=== PATIENT | female | born 1975 | race Caucasian/White ===

== ENCOUNTER 2021-09-21 16:59 | Inpatient (IN) | payer SELFPAY ==
[2021-09-21 17:29] VITALS: BP 135/87; PULSE 97; RESP 22; TEMP 36.6; O2SAT 97; BMI 26.4
--- NOTE | 2021-09-21 18:10 | ED.C_ITS ---
HPI - Psych General: Chief Complaint: Psychiatric Symptoms Stated Complaint: SI Time Seen by Provider: 09/21/21 17:38 Source: patient Mode of arrival: ambulatory Limitations: no limitations History of Present Illness: 46-year-old female who is here with suicidal ideations. She is here with her [id number] she had found out today that her had been cheating on her and had a mental breakdown. She said that she had a 9 mm gun was going to get it and shoot herself in the head. She is been drinking heavily as well. His she is very tearful and states she does want to kill herself. Associated symptoms: Reports depression and suicidal ideation Review of Systems Const: Denies: fever(s), chills, body aches or change in appetite Eyes: Denies: blurry vision or eye discomfort ENMT: Denies: throat pain or dental pain Card: Denies: chest pain Resp: Denies: dyspnea GI: Denies: abdominal pain, nausea, vomiting or diarrhea : Denies: dysuria Musc: Denies: neck pain or back pain Skin/Breast: Denies: rash Neuro: Denies: headache(s) Psych: Reports: depression and suicidal ideation Kerwin/Lymph: Denies: easy bruising All/Imm: Denies: urticaria Physical Exam Const: COMMON NORMALS: no acute distress, patient oriented x3 and healthy appearing HENMT: COMMON NORMALS: normocephalic and atraumatic HEAD & SCALP: normocephalic and atraumatic Eye: COMMON NORMALS: Equal, round and reactive pupils present and EOMs intact bilaterally PUPIL: Yes Equal, round and reactive pupils present Neck/C-Spine: COMMON NORMALS: full ROM and supple Chest: COMMONS NORMALS: normal inspection of the chest and normal palpation of entire chest wall Resp: COMMON NORMALS: normal respiratory effort, No retractions, No use of accessory muscles and clear to auscultation bilaterally AUSCULTATION: clear to auscultation bilaterally Cardio: COMMON NORMALS: regular rate, regular rhythm and No murmurs present (Cardio) RATE: regular rate RHYTHM: regular rhythm GI: COMMON NORMALS: Normal to inspection, nondistended, normoactive bowel sounds present, Soft to palpation, non-tender and no masses PALPATION: Yes Soft to palpation Extremity: COMMON NORMALS: normal to inspection and full ROM Neuro: COMMON NORMALS: patient oriented x3, moves all extremities and no focal motor deficits Psych: COMMON NORMALS: mental status grossly normal, Normal thought process present and cooperative THOUGHT PROCESS: Normal thought process present THOUGHT CONTENT: Yes Suicidality present Skin: COMMON NORMALS: no rashes or lesions noted and no wounds GENERAL SKIN EXAM: no rashes or lesions noted Course Vital Signs: Vital signs: Vital Signs Temperature 97.8 F 09/21/21 17:29 Pulse Rate 97 09/21/21 17:29 Respiratory Rate 22 H 09/21/21 17:29 Blood Pressure 135/87 09/21/21 17:29 Pulse Oximetry 97 09/21/21 17:29 MDM - Psych Medical Decision Making Patient presents here with suicidal ideation with a plan to shoot herself in the head. Patient is medically cleared placed in a 6-hour hold I spoke to aline guerin and will admit. Lab Data : 09/21/21 18:00 09/21/21 18:00 Laboratory Results WBC 14.2 10^3/uL (4.0-10.0) H 09/21/21 18:00 RBC 4.44 10^6/uL (4.1-5.3) 09/21/21 18:00 Hgb 14.1 g/dL (11.5-15.3) 09/21/21 18:00 Hct 42.6 % (37.0-47.0) 09/21/21 18:00 MCV 95.9 fl (81-99) 09/21/21 18:00 MCH 31.8 pg (28.0-34.0) 09/21/21 18:00 MCHC 33.1 g/dL (30.0-36.0) 09/21/21 18:00 RDW 12.5 % (12.1-15.1) 09/21/21 18:00 Plt Count 513 10^3/cmm (130-400) H 09/21/21 18:00 MPV 8.7 fL (7.4-10.4) 09/21/21 18:00 Neut % (Auto) 68.9 % 09/21/21 18:00 Lymph % (Auto) 23.7 % 09/21/21 18:00 [place] % (Auto) 5.8 % 09/21/21 18:00 Eos % (Auto) 0.5 % 09/21/21 18:00 Baso % (Auto) 0.7 % 09/21/21 18:00 Neut # (Auto) 9.82 10^3/uL (1.8-7.7) H 09/21/21 18:00 Lymph # (Auto) 3.4 10^3/uL (0.8-4.8) 09/21/21 18:00 [place] # (Auto) 0.8 10^3/uL (0.2-0.9) 09/21/21 18:00 Eos # (Auto) 0.1 10^3/uL (0.0-0.8) 09/21/21 18:00 Baso # (Auto) 0.1 10^3/uL (0.0-0.1) 09/21/21 18:00 Nucleated RBC % (auto) 0 % 09/21/21 18:00 Nucleated RBCs # 0.0 /100WBC 09/21/21 18:00 Sodium 143 mmol/L (136-145) 09/21/21 18:00 Potassium 3.8 mmol/L (3.5-5.1) 09/21/21 18:00 Chloride 110 mmol/L (98-107) H 09/21/21 18:00 Carbon Dioxide 19 mmol/L (22-29) L 09/21/21 18:00 Anion Gap 17.8 (5-19) 09/21/21 18:00 BUN 7 mg/dL (6-20) 09/21/21 18:00 Creatinine 0.7 mg/dL (0.5-0.9) 09/21/21 18:00 GFR Calculation 90.5 mL/min (90-130) 09/21/21 18:00 Glucose 100 mg/dL (65-115) 09/21/21 18:00 Calculated Osmolality 294 mOsm/kg (285-295) 09/21/21 18:00 Calcium 8.8 mg/dL (8.5-10.5) 09/21/21 18:00 Total Bilirubin 0.2 mg/dL (0.15-1.2) 09/21/21 18:00 AST 19 U/L (0-32) 09/21/21 18:00 ALT 18 U/L (0-33) 09/21/21 18:00 Alkaline Phosphatase 66 IU/L (35-105) 09/21/21 18:00 Total Protein 7.7 g/dL (6.6-8.7) 09/21/21 18:00 Albumin 4.7 g/dL (3.5-5.2) 09/21/21 18:00 Globulin 3.0 g/dL (1.3-4.6) 09/21/21 18:00 TSH 2.91 uIU/mL (0.27-4.20) 09/21/21 18:00 Salicylates 0.5 mg/dL (3-10) L 09/21/21 18:00 Acetaminophen 7.6 ug/mL (10-30) L 09/21/21 18:00 Ethyl Alcohol 182 mg/dL (0-10) H 09/21/21 18:00 Discharge Plan Discharge Patient Disposition: Admitted As Inpatient Clinical Impression: Suicidal ideation Condition: Stable Coding Level of Care Code ED Pet Caretaker for Naresh Fwd Exam Comprehensive
[2021-09-21 18:20] LABS: Basophils # 0.1 10^3/uL (0.0-0.1); Basophils % 0.7 %; Eosinophils # 0.1 10^3/uL (0.0-0.8); Eosinophils % 0.5 %; Hematocrit 42.6 % (37.0-47.0); Hemoglobin 14.1 g/dL (11.5-15.3); Lymphocytes # 3.4 10^3/uL (0.8-4.8); Lymphocytes % 23.7 %; Mean Corpuscular HGB Conc 33.1 g/dL (30.0-36.0); Mean Corpuscular Hemoglobin 31.8 pg (28.0-34.0); Mean Corpuscular Volume 95.9 fl (81-99); Mean Platelet Volume 8.7 fL (7.4-10.4); Monocytes # 0.8 10^3/uL (0.2-0.9); Monocytes % 5.8 %; Neutrophils # 9.82 10^3/uL (1.8-7.7); Neutrophils % 68.9 %; Nucleated Red Blood Cells % 0 %; Platelet Count 513 10^3/cmm (130-400); Red Blood Count 4.44 10^6/uL (4.1-5.3); Red Cell Distribution Width 12.5 % (12.1-15.1); White Blood Count 14.2 10^3/uL (4.0-10.0)
[2021-09-21 18:53] LABS: Acetaminophen 7.6 ug/mL (10-30); Alanine Aminotransferase 18 U/L (0-33); Albumin Level 4.7 g/dL (3.5-5.2); Alcohol Level 182 mg/dL (0-10); Alkaline Phosphatase 66 IU/L (35-105); Anion Gap 17.8 (5-19); Aspartate Amino Transferase 19 U/L (0-32); Blood Urea Nitrogen 7 mg/dL (6-20); Calcium 8.8 mg/dL (8.5-10.5); Carbon Dioxide 19 mmol/L (22-29); Chloride 110 mmol/L (98-107); Glomerular Filtration Rate 90.5 mL/min (90-130); Glucose 100 mg/dL (65-115); Osmolality Calculated 294 mOsm/kg (285-295); Potassium 3.8 mmol/L (3.5-5.1); Salicylate 0.5 mg/dL (3-10); Sodium 143 mmol/L (136-145); Thyroid Stimulating Hormone 2.91 uIU/mL (0.27-4.20); Total Bilirubin 0.2 mg/dL (0.15-1.2); Total Protein 7.7 g/dL (6.6-8.7)
[2021-09-21] MEDS: LORazepam 1 mg Tablet PO (20:34)
[2021-09-21] MEDS: acetaminophen 325 mg Tablet 650 MG PO (21:30)
[2021-09-21 21:34] VITALS: BP 138/86; PULSE 97; RESP 16; O2SAT 97
[2021-09-21 22:28] LABS: HCG Qualitative Urine. Negative (Negative)
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
[2021-09-22 06:00] VITALS: BP 108/71; PULSE 83; RESP 18; TEMP 36.6; O2SAT 97
[2021-09-22] MEDS: thiamine 100 mg Tablet PO (09:20)
[2021-09-22] MEDS: multivitamin therapeutic Tablet 1 TAB PO (09:20)
[2021-09-22] MEDS: folic acid 1 mg Tablet PO (09:20)
[2021-09-22 14:00] VITALS: BP 114/69; PULSE 72; RESP 18; TEMP 36.6; O2SAT 99
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
[2021-09-22 19:45] LABS: Add Urine Microscopic? YES; Bilirubin Urine Neg (Negative); Blood Urine 3+ (Negative); Glucose Urine UA Norm (Normal); Ketones Urine 1+ (Negative); Leukocyte Esterase Urine Negative (Negative); Nitrate Urine Negative (Negative); Protein Urine Neg (Negative); Urine Appearance Clear (CLEAR); Urine Color Yellow (Yellow); Urobilinogen Urine Norm (Negative); pH Urine 5 (5-7)
[2021-09-22 19:47] LABS: Add Urine Culture? No; Bacteria Urine 1+ /hpf; Squamous Epithelial Cell Urine 0-4 /hpf (0-5); WBC Urine 0-4 /hpf (0-5)
[2021-09-22 19:50] LABS: Amphetamines Screen Urine Negative (Negative); Barbiturates Screen Urine Negative (Negative); Benzodiazepines Screen Urine Positive (Negative); Cocaine Screen Urine Negative (Negative); Opiate Screen Urine Negative (Negative); PCP Screen Urine Negative (Negative); THC Screen Urine Negative (Negative)
[2021-09-22 21:23] VITALS: BP 122/80; PULSE 74; RESP 17; TEMP 36.9; O2SAT 99
[2021-09-23 06:00] VITALS: BP 118/77; PULSE 63; RESP 18; TEMP 36.8; O2SAT 98
--- NOTE | 2021-09-23 08:54 | P.NPUPN_ITS ---
Subjective NPU Subjective: Interval history: Patient presents today once again really focused on getting back to work so that she can make money. We discussed the issues surrounding her having the gun and having to monitor her for safety. She did not downplayed the episode suggesting at least in part that either any it did not go down like it was suggested or be it never happened and she was just trying to get her 's attention. We discussed that we would need to identify the whereabouts of the gun as well as work with the treatment team tomorrow to make sure we have done our due diligence as far as safety measures given that she is refusing medication and is seeming ambivalent about treatment. Mental Status Exam MSE Comments: This is a well-nourished, well-developed white female in hospital scrubs with adequate grooming and limited eye contact. No abnormal movements. Cooperative with exam in mild distress. Speech was decreased rate, normal volume. Patient mood described as good, affect is subdued. Thought process, organized. Thought content: patient denies any suicidal or homicidal ideation, no delusions reported or noted, and denies any auditory or visual hallucinations. Attention, concentration and memory were intact and reliable but were not formally tested. She is alert and oriented three times. Insight and judgement appear limited. Impulse control is limited. Vitals/I&O/Wt Last Vital Signs Temp 98.2 F 09/23/21 06:00 Pulse 63 09/23/21 06:00 Resp 18 09/23/21 06:00 BP 118/77 09/23/21 06:00 Pulse Ox 98 09/23/21 06:00 Weight last 48 hrs Weight 63.503 kg Data NPU : 09/21/21 18:00 09/21/21 18:00 A&P Assessment and plan (1) History of posttraumatic stress disorder (PTSD): Status: Acute (2) Partner relational problem: Status: Acute (3) Adjustment disorder with mixed disturbance of emotions and conduct: Status: Acute (4) Suicidal ideation: Status: Acute (5) Suicide gesture: Status: Acute Plan This is a 46 year old white female with a long history of trauma and significant childhood trauma who presents after significant partner relational issues and other psychosocial stressors with increased alcohol use and a significant suicidal gesture not desiring medication or other specific interventions. We discussed the risks, benefits and alternatives to medication and the patient did not wish to proceed as is documented in this note. 1. Continue all current medication and will work with the patient to consider an antidepressant. 2. Encourage individual, group and milieu therapy 3. Continue q-15 minute check for safety 4. Recommend sober living treatment at the highest level of care to which the patient is willing to commit. 5. Given the serious nature of this gesture we will monitor for safety. Involuntary Hold Information 96 Hour Hold: 96 Hour Involuntary Admission: Yes Attestations NPU 2 Medical Necessity Statement*: Inpatient hospitalization is medically necessary and the clinically appropriate intervention at this time. We will monitor medica tions and make changes as indicated. Likely length of stay is 1-3 days. Coding Level of Care Code Acute Supervisor Pipe [employer]s for Naresh Gilbert Diagnoses History of posttraumatic stress disorder (PTSD) Z86.59 Partner relational problem Z63.0 Adjustment disorder with mixed disturbance of emotions and conduct F43.25 Suicidal ideation R45.851 Suicide gesture X83.8XXA
[2021-09-23] MEDS: thiamine 100 mg Tablet PO (09:45)
[2021-09-23] MEDS: folic acid 1 mg Tablet PO (09:45)
[2021-09-23] MEDS: multivitamin therapeutic Tablet 1 TAB PO (09:45)
[2021-09-23 14:00] VITALS: BP 110/78; PULSE 68; RESP 17; TEMP 36.9; O2SAT 97
[2021-09-23 20:33] VITALS: BP 123/59; PULSE 67; RESP 17; TEMP 36.8; O2SAT 98
[2021-09-24 06:00] VITALS: BP 109/73; PULSE 111; RESP 18; TEMP 36.7; O2SAT 91
[2021-09-24] MEDS: folic acid 1 mg Tablet PO (10:18)
[2021-09-24] MEDS: thiamine 100 mg Tablet PO (10:18)
[2021-09-24] MEDS: multivitamin therapeutic Tablet 1 TAB PO (10:18)
--- NOTE | 2021-09-24 13:00 | NPU.GN ---
[facility] Unit Group Topic: Whmariajose Barrel Activity General Mood of Group: Sanchez did attend and participate in group today. Client seemed stable. Client did take a new patient packet to fill out as she wants to have marriage counseling . Client was well groomed.
[2021-09-24 14:00] VITALS: BP 123/74; PULSE 62; RESP 16; TEMP 36.7; O2SAT 100
--- NOTE | 2021-09-24 18:51 | W.PM.NPUPNS ---
Subjective NPU Subjective: Interval history: Patient presents today unwavering in her position as to there not being any need for medication or any significant intervention other than her getting back to work. She did take the information to get connected with [facility]. We explained we will still awaiting contact from her with assurance that any guns have been removed which has not occurred at this time. She assures us that all guns have been removed but we had not gotten confirmation. We discussed the plan for discharge in the morning with that confirmation. Mental Status Exam MSE Comments: This is a well-nourished, well-developed white female in hospital scrubs with adequate grooming and limited eye contact. No abnormal movements. Cooperative with exam in mild distress. Speech was decreased rate, normal volume. Patient mood described as good, affect appears euthymic. Thought process, organized. Thought content: patient denies any suicidal or homicidal ideation, no delusions reported or noted, and denies any auditory or visual hallucinations. Attention, concentration and memory were intact and reliable but were not formally tested. She is alert and oriented three times. Insight and judgement appear limited. Impulse control is limited. Vitals/I&O/Wt Last Vital Signs Temp 98.2 F 09/24/21 21:28 Pulse 73 09/24/21 21:28 Resp 20 H 09/24/21 21:28 BP 110/75 09/24/21 21:28 Pulse Ox 99 09/24/21 21:28 Data NPU : 09/21/21 18:00 09/21/21 18:00 A&P Assessment and plan (1) Suicide gesture: Status: Acute (2) History of posttraumatic stress disorder (PTSD): Status: Acute (3) Partner relational problem: Status: Acute (4) Adjustment disorder with mixed disturbance of emotions and conduct: Status: Acute (5) Suicidal ideation: Status: Acute Plan This is a 46 year old white female with a long history of trauma and significant childhood trauma who presents after significant partner relational issues and other psychosocial stressors with increased alcohol use and a significant suicidal gesture not desiring medication or other specific interventions. We discussed the risks, benefits and alternatives to medication and the patient did not wish to proceed as is documented in this note. 1. Continue all current medication and will work with the patient to consider an antidepressant. 2. Encourage individual, group and milieu therapy 3. Continue q-15 minute check for safety 4. Recommend sober living treatment at the highest level of care to which the patient is willing to commit. 5. Given the serious nature of this gesture we will monitor for safety. Await word of the securing of any guns. Involuntary Hold Information 96 Hour Hold: 96 Hour Involuntary Admission: Yes Attestations NPU Medical Necessity Statement*: Inpatient hospitalization is medically necessary and the clinically appropriate intervention at this time. We will monitor medications and make changes as indicated.? Likely length of stay is 1-2 days. Coding Level of Care Code Acute Skip Pitman for Naresh Gilbert Diagnoses Suicide gesture X83.8XXA History of posttraumatic stress disorder (PTSD) Z86.59 Partner relational problem Z63.0 Adjustment disorder with mixed disturbance of emotions and conduct F43.25 Suicidal ideation R45.851
[2021-09-24 21:28] VITALS: BP 110/75; PULSE 73; RESP 20; TEMP 36.8; O2SAT 99
[2021-09-25 06:00] VITALS: BP 116/55; PULSE 71; RESP 20; TEMP 36.5; O2SAT 98
[2021-09-25] MEDS: folic acid 1 mg Tablet PO (09:38)
[2021-09-25] MEDS: multivitamin therapeutic Tablet 1 TAB PO (09:38)
[2021-09-25] MEDS: thiamine 100 mg Tablet PO (09:39)
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
[2021-09-25 11:36] VITALS: BP 116/55; PULSE 71; RESP 20; TEMP 36.5; O2SAT 98
--- NOTE | 2021-09-25 12:49 | NPU.GN ---
[facility] Group Topic: Self Care General Mood of Group: Sanchez did attend and participate in group today. Her hygiene was good and her mindset seems stable. 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
[2021-09-25 14:00] VITALS: BP 124/74; PULSE 88; RESP 17; TEMP 36.9; O2SAT 98
== END 2021-09-25 17:15 | disposition home or self-care (01) | DRG 881 ==
LOC: ER 18:57 → NP 19:08
PROVIDERS: Emergency Medicine; Admitting Provider Psychiatry & Neurology Psychiatry; Emergency Provider Emergency Medicine; Visit Provider Psychiatry & Neurology Psychiatry
DX: F32.A Depression, unspecified (principal); R45.851 Suicidal ideations; Z63.0 Problems in relationship with spouse or partner; F17.210 Nicotine dependence, cigarettes, uncomplicated; F10.10 Alcohol abuse, uncomplicated; F43.25 Adjustment disorder with mixed disturbance of emotions and conduct; F43.10 Post-traumatic stress disorder, unspecified; Z81.8 Family history of other mental and behavioral disorders
CPT/HCPCS: 80053; 80306; 80307; 81001; 81025; 84443; 85025; 97150; 97165; 99285

== ENCOUNTER 2024-11-12 06:36 | Outpatient (CLI) | payer BC, SELFPAY ==
--- NOTE | 2024-11-12 07:15 | US_ITS ---
WS: [id number] Complete ABDOMINAL ULTRASOUND HISTORY: Right Abomen pain and weight loss COMPARISON: None available. Liver: 16.6 cm in length. Normal size liver and echogenicity. No bile duct dilatation or mass. Portal Vein: Normal hepatopetal flow with monophasic waveform. Gallbladder: Normally distended gallbladder with no stones or wall thickening. CBD: 0.2 cm Pancreas: Normal size and echogenicity. Right kidney: 10.3 cm x 4.4 x 4.6 cm. Cortex:0.9 cm. Normal size and echogenicity. No hydronephrosis or mass. Left kidney: 10.0 cm x 4.2 cm x 4.5 cm. Cortex: 1.1 cm. Normal size and echogenicity. No hydronephrosis or mass. Spleen: 9.4 cm. Normal size and echogenicity. Aorta and IVC: Unremarkable abdominal aorta and IVC. US/US abdomen complete* [id number] Impression: Normal complete abdomen ultrasound.
== END 2024-11-12 06:37 | disposition home or self-care (01) ==
PROVIDERS: Visit Provider Family Medicine Adult Medicine
DX: R10.9 Unspecified abdominal pain (principal); R63.4 Abnormal weight loss
CPT/HCPCS: 76700

== ENCOUNTER 2024-11-18 08:59 | Outpatient (CLI) | payer BC, SELFPAY ==
--- NOTE | 2024-11-18 09:05 | XR_ITS ---
WS: [id number] XR lumbar spine 2-3V* [id number] REASON FOR EXAM: chronic low back pain FINDINGS: Relatively normal lumbar spine curvatures. No significant vertebral body abnormality. Mild narrowing of the L5-S1 disc space. No spondylolysis or spondylolisthesis. Normal facet joints. XR/XR lumbar spine 2-3V* [id number] IMPRESSION: Minimal degenerative spondylosis as above.
--- NOTE | 2024-11-18 09:05 | XR_ITS ---
WS: [email or web address] XR sacrum coccyx min 2V [id number] REASON FOR EXAM: coccyx pain FINDINGS: Normal sacroiliac joints. Bony sacrum is intact without fracture or focal lesion. Coccyx is normal without fracture or displacement. XR/XR sacrum coccyx min 2V [id number] IMPRESSION: No significant abnormality.
--- NOTE | 2024-11-18 09:05 | XR_ITS ---
WS: [id number] XR hip RT 2-3V wo/w pel* [id number] REASON FOR EXAM: chronic right hip pain FINDINGS: No fracture or focal bone lesion. Minimal narrowing of the posterior inferior joint space with minimal subchondral sclerosis of the acetabulum. Mild osteophytosis at the femoral head. XR/XR hip RT 2-3V wo/w pel* [id number] IMPRESSION: Minimal to mild osteo arthritis of the right hip.
== END 2024-11-18 09:00 | disposition home or self-care (01) ==
LOC: RAD 09:01
PROVIDERS: PCP Family Medicine; Visit Provider Family Medicine
DX: M16.11 Unilateral primary osteoarthritis, right hip (principal); M53.3 Sacrococcygeal disorders, not elsewhere classified; G89.29 Other chronic pain; M47.896 Other spondylosis, lumbar region; Z13.6 Encounter for screening for cardiovascular disorders
CPT/HCPCS: 72100; 72220; 73502; 80053; 80061; 80503; 82728; 83550; 84443; 85025; 85651; 86140

== ENCOUNTER 2024-11-25 06:18 | Outpatient (CLI) | payer BC, SELFPAY ==
--- NOTE | 2024-11-25 06:30 | MR_ITS ---
WS: [id number] MRI PELVIS WITHOUT CONTRAST. COMPARISON: Radiograph 11/18/2024 Multiplanar, multisequence imaging is performed without contrast. History: Sacral and coccygeal pain radiating into hips. Pain for 2 months. Normal alignment of the L4 and L5 vertebral bodies. Slight increased curvature of the sacrum and coccyx. There is no marrow edema or destructive bone lesion seen on this unenhanced exam within the sacrum or coccyx. Normal signal in the hips and pubic rami. No joint effusion at the hips. Symmetric appearance of the muscles. No presacral soft tissue mass identified. Visualized appearance of the GI tract is unremarkable. Uterus is present and anteriorly positioned. No ovarian enlargement. No ovarian or adnexal cyst. No adenopathy. MR/MR pelvis wo con* [id number] IMPRESSION: Negative MRI pelvis. No masses or bone abnormality identified.
== END 2024-11-25 06:19 | disposition home or self-care (01) ==
PROVIDERS: PCP Family Medicine; Visit Provider Family Medicine
DX: M53.3 Sacrococcygeal disorders, not elsewhere classified (principal); M54.16 Radiculopathy, lumbar region
CPT/HCPCS: 72195

== ENCOUNTER → 2024-12-21 10:57 | Outpatient (BNVA) | payer BC, SELFPAY | PROVIDERS: PCP Family Medicine; Visit Provider Family Medicine | DX: Z01.419 Encounter for gynecological examination (general) (routine) without abnormal findings (principal) | CPT/HCPCS: 87624 ==

== ENCOUNTER → 2025-03-15 08:48 | Outpatient (BNVA) | payer BC, SELFPAY | PROVIDERS: PCP Family Medicine; Visit Provider Nurse Practitioner | DX: R39.9 Unspecified symptoms and signs involving the genitourinary system (principal) | CPT/HCPCS: 81000; 87086 ==